=== PATIENT | female | born 1975 | race Caucasian/White ===

== ENCOUNTER → 2023-10-10 08:03 | Outpatient (REF) | payer BC, SELFPAY | LOC: RAD 08:03 | PROVIDERS: ATTENDING PHYSICIAN Internal Medicine Hematology & Oncology; FAMILY PHYSICIAN Nurse Practitioner Adult Health | DX: C21.0 Malignant neoplasm of anus, unspecified (principal) | CPT/HCPCS: 71260; Q9967 ==

== ENCOUNTER → 2023-10-13 10:14 | Outpatient (REF) | payer BC, SELFPAY | LOC: MRI 3T 10:14 | PROVIDERS: ATTENDING PHYSICIAN Internal Medicine Hematology & Oncology; FAMILY PHYSICIAN Nurse Practitioner Adult Health | DX: C21.0 Malignant neoplasm of anus, unspecified (principal) | CPT/HCPCS: 72197; A9575 ==

== ENCOUNTER → 2023-10-16 15:13 | Outpatient (REF) | payer BC, SELFPAY | LOC: MRI 3T 15:13 | PROVIDERS: ATTENDING PHYSICIAN Internal Medicine Hematology & Oncology; FAMILY PHYSICIAN Nurse Practitioner Adult Health | DX: C21.0 Malignant neoplasm of anus, unspecified (principal) | CPT/HCPCS: 74183; A9575 ==

== ENCOUNTER → 2024-01-01 15:39 | Outpatient (REF) | payer BC, SELFPAY | LOC: RAD 15:39 | PROVIDERS: ATTENDING PHYSICIAN Chiropractor; FAMILY PHYSICIAN Nurse Practitioner Adult Health | DX: C21.1 Malignant neoplasm of anal canal (principal); M54.6 Pain in thoracic spine | CPT/HCPCS: 72072 ==

== ENCOUNTER → 2024-01-18 08:08 | Outpatient (REF) | payer BC, SELFPAY | LOC: RAD 08:08 | PROVIDERS: ATTENDING PHYSICIAN Internal Medicine Hematology & Oncology; FAMILY PHYSICIAN Nurse Practitioner Adult Health | DX: C21.0 Malignant neoplasm of anus, unspecified (principal) | CPT/HCPCS: 70491; 71260; Q9967 ==

== ENCOUNTER 2024-01-24 06:09 | Day surgery (SDC) | payer BC, SELFPAY ==
[2024-01-19 12:59] VITALS: BMI 24.5
[2024-01-24] MEDS: TYLENOL 1000 MG PO (06:42)
[2024-01-24] MEDS: NORMOSOL-R 1000 IV (06:48)
[2024-01-24 06:49] VITALS: BP 104/56
[2024-01-24 07:07] VITALS: BMI 24.5
[2024-01-24 08:20] VITALS: BP 96/69
[2024-01-24 08:35] VITALS: BP 105/76
[2024-01-24 08:55] VITALS: BP 99/73
[2024-01-24 09:20] VITALS: BP 105/73
== END 2024-01-24 09:30 | disposition home or self-care (01) ==
LOC: SDS 06:09
PROVIDERS: ATTENDING PHYSICIAN Surgery; FAMILY PHYSICIAN Nurse Practitioner Adult Health; OTHER PHYSICIAN Internal Medicine Hematology & Oncology
DX: K62.0 Anal polyp (principal); K64.4 Residual hemorrhoidal skin tags; Z85.048 Personal history of other malignant neoplasm of rectum, rectosigmoid junction, and anus; Z98.890 Other specified postprocedural states
CPT/HCPCS: 46230; 88304; 88312; 36415; 88341; 88342; 93005

== ENCOUNTER → 2024-02-08 17:52 | Outpatient (REF) | payer BC, SELFPAY | LOC: MRI 17:52 | PROVIDERS: ATTENDING PHYSICIAN Internal Medicine Hematology & Oncology; FAMILY PHYSICIAN Nurse Practitioner Adult Health | DX: C21.0 Malignant neoplasm of anus, unspecified (principal) | CPT/HCPCS: 74183; A9575 ==

== ENCOUNTER → 2024-02-12 07:42 | Outpatient (REF) | payer BC, SELFPAY | LOC: MRI 3T 07:42 | PROVIDERS: ATTENDING PHYSICIAN Internal Medicine Hematology & Oncology; FAMILY PHYSICIAN Nurse Practitioner Adult Health | DX: C21.0 Malignant neoplasm of anus, unspecified (principal) | CPT/HCPCS: 72197; A9575 ==

== ENCOUNTER → 2024-02-28 16:54 | Outpatient (REF) | payer BC, SELFPAY | LOC: WDC 16:54 | PROVIDERS: ATTENDING PHYSICIAN Nurse Practitioner Adult Health | DX: Z12.31 Encounter for screening mammogram for malignant neoplasm of breast (principal) | CPT/HCPCS: 77063; 77067 ==

== ENCOUNTER → 2024-05-09 09:45 | Outpatient (REF) | payer BC, SELFPAY | LOC: WDC 09:45 | PROVIDERS: ATTENDING PHYSICIAN Family Medicine Geriatric Medicine; FAMILY PHYSICIAN Nurse Practitioner Adult Health | DX: N64.4 Mastodynia (principal) | CPT/HCPCS: 76642 ==

== ENCOUNTER → 2024-07-15 14:38 | Outpatient (REF) | payer BC, SELFPAY | LOC: HWRAD 14:38 | PROVIDERS: ATTENDING PHYSICIAN Internal Medicine Hematology & Oncology; FAMILY PHYSICIAN Nurse Practitioner Adult Health | DX: C21.0 Malignant neoplasm of anus, unspecified (principal) | CPT/HCPCS: 70491; 71260; 74177; Q9967 ==

== ENCOUNTER → 2025-03-01 08:38 | Outpatient (REF) | payer BC, SELFPAY | LOC: RAD 08:38 | PROVIDERS: ATTENDING PHYSICIAN Obstetrics & Gynecology; FAMILY PHYSICIAN Nurse Practitioner Adult Health | DX: Z12.31 Encounter for screening mammogram for malignant neoplasm of breast (principal); M54.6 Pain in thoracic spine | CPT/HCPCS: 72072; 77063; 77067 ==

== ENCOUNTER → 2025-06-04 13:12 | Outpatient (REF) | payer BC, SELFPAY | LOC: RAD 13:12 | PROVIDERS: ATTENDING PHYSICIAN Internal Medicine Hematology & Oncology; FAMILY PHYSICIAN Nurse Practitioner Adult Health | DX: C21.0 Malignant neoplasm of anus, unspecified (principal); D72.819 Decreased white blood cell count, unspecified | CPT/HCPCS: 70491; 71260; 74177; Q9967 ==

== ENCOUNTER → 2025-07-24 13:03 | Outpatient (REF) | payer BC, SELFPAY | LOC: RAD 13:03 | PROVIDERS: ATTENDING PHYSICIAN Student in an Organized Health Care Education/Training Program; FAMILY PHYSICIAN Nurse Practitioner Adult Health | DX: S22.000G Wedge compression fracture of unspecified thoracic vertebra, subsequent encounter for fracture with delayed healing (principal); M81.0 Age-related osteoporosis without current pathological fracture; D72.819 Decreased white blood cell count, unspecified; E21.5 Disorder of parathyroid gland, unspecified | CPT/HCPCS: 72040; 72100 ==